=== PATIENT | male | born 1950 | race Caucasian/White ===

== ENCOUNTER 2016-06-25 11:19 | Emergency (ER) | payer MEDICARE, BC ==
[2016-06-25] MEDS ORDERED: LORazepam 2 MG/ML SYRINGE IVP STA (12:37)
[2016-06-25] MEDS ORDERED: LORazepam 2 MG/ML SYRINGE ONE (12:48)
== END 2016-06-25 14:13 | disposition home or self-care (01) ==
DX: R07.89 Other chest pain (principal); I10 Essential (primary) hypertension; F10.239 Alcohol dependence with withdrawal, unspecified; Z91.19 Patient's noncompliance with other medical treatment and regimen; R79.89 Other specified abnormal findings of blood chemistry; I45.2 Bifascicular block; R94.31 Abnormal electrocardiogram [ECG] [EKG]
CPT/HCPCS: 36415; 71020; 80053; 80320; 83690; 84484; 85025; 93005; 93010; 96374; 99283; 99284; J2060

== ENCOUNTER 2018-07-13 13:00 | Emergency (ER) | payer MEDICARE, BC ==
[2018-07-13 13:12] VITALS: BP 172/108
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
--- NOTE | 2018-07-13 13:44 | XRAY Report ---
Reason: fall onto left chest, midaxillary rib pain Procedure Date: 07/13/2018 Accession Number: [id number] / [id number] Procedure: XR - Ribs w/PA Chest LT CPT Code: FULL RESULT: EXAM: LEFT RIB RADIOGRAPHY EXAM DATE: 07/13/2018 01:26 PM. CLINICAL HISTORY: Fall onto left chest, midaxillary rib pain. COMPARISON: CHEST 2 VIEW PA/LAT 06/25/2016 12:39 PM. TECHNIQUE: 1 view of the chest and 2 views of the ribs. FINDINGS: Bones: No acute rib fracture is identified. Lungs: Lung volumes are low. No consolidation or pneumothorax. Mediastinum: Heart size is normal. Other: None. IMPRESSION: No acute fracture or pneumothorax. RADIA
== END 2018-07-13 14:15 | disposition home or self-care (01) ==
LOC: ED 13:00
DX: S20.212A Contusion of left front wall of thorax, initial encounter (principal); W18.39XA Other fall on same level, initial encounter; Y93.89 Activity, other specified; I10 Essential (primary) hypertension
CPT/HCPCS: 99283

== ENCOUNTER 2019-10-06 18:27 | Emergency (ER) | payer MEDICARE, BC ==
[2019-10-06] MEDS ORDERED: BACITRACIN ZINC OINT 1 PACKET TOP STA (19:00)
--- NOTE | 2019-10-06 19:02 | ED Physician Documentation ---
History of Present Illness - Stated complaint Stated Complaint: HEAD LAC - Chief complaint Chief Complaint: Wound - History obtained from History obtained from: Patient - History of Present Illness Timing: Today Pain level max: 0 Pain level now: 0 - Additonal information Additional information: 68-year-old male presents the emergency department for laceration to the top of the head. He was walking today, tripped over a milk crate and hit a door jam. No loss of consciousness. No neck or back pain. Tetanus is up-to-date. No vomiting. Not on blood thinners. Nothing makes it better or worse. Review of Systems Constitutional: denies: Fever, Chills GI: denies: Nausea, Vomiting, Diarrhea PD PAST MEDICAL HISTORY - Past Medical History Cardiovascular: Hypertension GI: GERD Psych: Anxiety - Past Surgical History Past Surgical History: No - Present Medications Home Medications: Ambulatory Orders Medication Instructions Recorded Confirmed Hydrocodone/Acetaminophen [[place] 1 each PO Q6HR #10 tablet 07/13/18 5-325 Tablet] Olmesartan Medoxomil [Benicar] 40 mg PO DAILY 07/13/18 07/13/18 Omeprazole 40 mg PO DAILY 07/13/18 07/13/18 - Allergies Allergies/Adverse Reactions: Allergies Allergy/AdvReac Type Severity Reaction Status Date / Time No Known Drug Allergies Allergy Verified 10/06/19 18:35 - Social History Does the pt smoke?: No Smoking Status: Never smoker Does the pt drink ETOH?: No Does the pt have substance abuse?: No - Immunizations Immunizations are current?: Yes PD ED PE NORMAL - Vitals Vital signs reviewed: Yes - General General: Alert and oriented X 3, No acute distress - HEENT HEENT: Moist mucous membranes, Other (posterior scalp laceration, no bleeding.) - Neck Neck: Supple, no meningeal sign, No bony TTP - Cardiac Cardiac: RRR - Respiratory Respiratory: No respiratory distress, Clear bilaterally - Derm Derm: Warm and dry - Neuro Neuro: Alert and oriented X 3 - Psych Psych: Normal mood, Normal affect Results - Vitals Vitals: Vital Signs - 24 hr 10/06/19 10/06/19 18:29 19:18 Temperature 36.9 C Heart Rate 94 88 Respiratory 18 16 Rate Blood Pressure 144/92 H 143/84 H O2 Saturation 93 98 Oxygen O2 Source Room air Procedures - Laceration (location) posterior Length in cm: 3 Wound type: Curved, Superficial, Clean Neurovascular status: Sensory intact Wound Preparation: Irrigated copiously NS Skin layer closure: [place] Other: Patient tolerated well, No complications, Neurovascular intact, Tetanus UTD Complexity: Simple PD MEDICAL DECISION MAKING - ED course Complexity details: considered differential, d/w patient ED course: laceration repaired with john. NVI. No ICH or skull fractures. Warnings of infection and instructions on wound care given at bedside. Also counseled on how to minimize scarring. Patient counseled regarding signs and symptoms for which I believe and urgent re-evaluation would be necessary. Patient with good understanding of and agreement to plan and is comfortable going home at this time This document was made in part using voice recognition software. While efforts are made to proofread this document, sound alike and grammatical errors may occur. Departure - Departure Disposition: 01 Home, Self Care Clinical Impression: Scalp laceration Qualifiers: Encounter type: initial encounter Qualified Code(s): S01.01XA - Laceration without foreign body of scalp, initial encounter Condition: Good Instructions: ED Laceration Scalp Stitch Or Stap Follow-Up: Vilma Childers MD [Primary Care Provider] - Comments: Follow-up with your doctor in 10 to 14 days for staple removal or you can return here. Return sooner if you notice redness, swelling or drainage from the wound. Keep the wound clean. Discharge Date/Time: 10/06/19 19:18
[2019-10-06 19:18] VITALS: BP 143/84
== END 2019-10-06 19:18 | disposition home or self-care (01) ==
LOC: ED 18:27
DX: S01.01XA Laceration without foreign body of scalp, initial encounter (principal); W01.198A Fall on same level from slipping, tripping and stumbling with subsequent striking against other object, initial encounter; Y93.01 Activity, walking, marching and hiking; I10 Essential (primary) hypertension
CPT/HCPCS: 12002; 99282; A9270

== ENCOUNTER 2019-10-15 13:22 | Emergency (ER) | payer MEDICARE, BC ==
[2019-10-15 13:33] VITALS: BP 132/87
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
== END 2019-10-15 14:01 | disposition home or self-care (01) ==
LOC: ED 13:22
DX: S01.01XD Laceration without foreign body of scalp, subsequent encounter (principal)

== ENCOUNTER 2020-01-28 16:36 | Outpatient (CLI) | payer MEDICARE, BC | END 2020-01-28 16:37 | disposition home or self-care (01) | LOC: COV 16:36 | PROVIDERS: ATTEND Surgery | DX: Z01.812 Encounter for preprocedural laboratory examination (principal); K42.9 Umbilical hernia without obstruction or gangrene; K40.90 Unilateral inguinal hernia, without obstruction or gangrene, not specified as recurrent; Z20.828 Contact with and (suspected) exposure to other viral communicable diseases ==

== ENCOUNTER 2020-02-02 06:39 | Day surgery (SDC) | payer MEDICARE, BC ==
[~2020-02-02 06:39] MED LIST: CEFAZOLIN SODIUM IN 0.9 % NACL 2 GM/100 ML BAG IV ONE
--- NOTE | 2020-02-02 07:25 | ANESTHESIA ---
Pre-Anesthesia VS, & Labs - Diagnosis LIH/Umbilical hernia - Procedure Repair of LIH/UMB Hernia Vital Signs: Temp Pulse Resp BP Pulse Ox 36.4 C L 71 16 137/83 H 95 02/02/20 06:30 02/02/20 06:30 02/02/20 06:30 02/02/20 06:30 02/02/20 06:30 Height: 5 ft 6.5 in Weight (kg): 106.6 kg Body Mass Index: 37.3 BMI Classification: Obese - NPO >8 hours - Lab Results Lab results reviewed: Yes Home Medications and Allergies Home Medications: Ambulatory Orders Semaglutide [Ozempic] 0.5 - 1 mg SQ DAILY 01/22/20 Active Medications Scopolamine HBr (Scopolamine Patch) 1 patch TOP ONCE RON Olmesartan Medoxomil [Benicar] 40 mg PO DAILY 07/13/18 Omeprazole 20 mg PO DAILY 07/13/18 Metformin HCl [Fortamet] 500 mg PO DAILY 01/02/20 Semaglutide [Ozempic] 0.5 - 1 mg SQ DAILY 01/22/20 Allergies/Adverse Reactions: Allergies Allergy/AdvReac Type Severity Reaction Status Date / Time No Known Drug Allergies Allergy Verified 10/15/19 13:33 Anes History & Medical History - Anesthetic History Anesthesia Complications: reports: Post-Operative Nausea/Vomiting Family history of Anesthesia Complications: Denies Family history of Malignant Hyperthermia: Denies - Medical History Cardiovascular: reports: Hypertension Pulmonary: reports: Sleep apnea Gastrointestinal: reports: GERD Urinary: reports: Kidney stones Neuro: reports: None Musculoskeletal: reports: None Endocrine/Autoimmune: reports: Type 2 diabetes Skin: reports: None Smoking Status: Never smoker History of Cancer?: No - Surgical History General: Cholecystectomy, Colonoscopy Exam General: Alert, Oriented x3, Cooperative Dental: WNL Mouth Openin Fingerbreadth Neck Mobility: Reduced Mallampati classification: II Thyromental Distance: 4-6 cm Respiratory: Lungs clear Cardiovascular: Regular rate, Normal S1, Normal S2, No murmurs Plan Anesthesia Type: General Consent for Procedure(s) Verified and Reviewed: Yes Code Status: Attempt Resuscitation ASA classification: 3-Severe systemic disease Is this case an emergency?: No (Discussed Anesthesia, consent signed.)
[2020-02-02] MEDS ORDERED: fentaNYL 100 MCG/2 ML VIAL IVP PRN (07:28)
[2020-02-02] MEDS ORDERED: HYDROmorphone 0.5 MG/0.5 ML SYRINGE IVP PRN (07:28)
[2020-02-02] MEDS ORDERED: ATROPINE ABBOJECT 1 MG/10 ML SYRINGE IVP PRN (07:28)
[2020-02-02] MEDS ORDERED: NALOXONE 0.4 MG/ML VIAL IVP PRN (07:28)
[2020-02-02] MEDS ORDERED: METOCLOPRAMIDE 10 MG/2 ML VIAL IVP PRN (07:28)
[2020-02-02] MEDS ORDERED: ePHEDrine 50 MG/ML VIAL IVP PRN (07:28)
[2020-02-02] MEDS ORDERED: ONDANSETRON 4 MG/2 ML VIAL IVP PRN ×2 (07:28→09:42)
[2020-02-02] MEDS ORDERED: MORPHINE 2 MG/ML CARPUJECT IVP PRN (07:28)
[2020-02-02] MEDS ORDERED: LACTATED RINGERS 1,000 ML IV ONE ×2 (07:30→09:53)
[2020-02-02] MEDS ORDERED: ceFAZolin 1 GM VIAL ONE (07:36)
[2020-02-02] MEDS ORDERED: LIDOCAINE 1%-EPI 1:100000 20 ML MDV ONE (07:36)
[2020-02-02] MEDS ORDERED: BUPIVACAINE 0.5%-EPI 1:200000 PF 30 ML VIAL ONE (07:36)
[2020-02-02] MEDS ORDERED: SCOPOLAMINE PATCH TOP ONE ×2 (07:37→08:00)
[2020-02-02] MEDS ORDERED: BUPIVACAINE 0.5% PF 30 ML VIAL ONE (07:58)
[2020-02-02] MEDS ORDERED: LACTATED RINGERS 1,000 ML IV SCH (08:00)
[2020-02-02] MEDS ORDERED: BUPIVACAINE 0.5% PF 30 ML VIAL INFIL ONE (08:33)
[2020-02-02] MEDS ORDERED: LIDOCAINE 1%-EPI 1:100000 30 ML MDV SUBQ ONE (08:33)
[2020-02-02] MEDS ORDERED: ceFAZolin 1 GM VIAL IR ONE (08:56)
--- NOTE | 2020-02-02 09:39 | OPERATIVE REPORT ---
Operative Report - General Procedure Date: 02/02/20 Planned Procedure: Umbilical hernia repair and left inguinal hernia repair Pre-Op Diagnosis: Umbilical incisional hernia and left inguinal hernia Procedure Performed: Umbilical hernia repair and left inguinal hernia repair Post Op Diagnosis: Umbilical incisional hernia and left inguinal hernia - Procedure Note Primary Surgeon: Dane Anesthesia Provider: KESHA Sánchez Anesthesia Technique: General LMA, Local Pathology: None IV Fluids (mL): 600 Estimated Blood Loss (mL): 10 Findings: 1. Large direct left inguinal hernia 2. Small incisional hernia at the umbilicus Complications: None apparent - Other Other Information/Narrative: After obtaining informed consent, the patient is brought to the operating room and placed in the supine position on the operating table. Following successful induction of general endotracheal anesthesia, appropriate padding of all bony prominences, and placement of appropriate monitors, the abdomen was prepped and draped in the standard surgical fashion. A timeout was held per scope protocol. All elements of the surgical safety checklist were followed before, during, and after the procedure. We began the procedure by infiltrating a mixture of local anesthetics medial to the anterior superior iliac spine on the left. This was done to create an ileal inguinal nerve block. We then selected a site for an incision in the right lower quadrant just superior and lateral to the left pubic tubercle. This area was anesthetized with additional local anesthetic and an incision was created here.The incision was carried down through the skin and subcutaneous tissue to reveal the fascia of the external oblique aponeurosis. Retractor was placed and the aponeurosis was opened in direction of its fibers. The ilioinguinal nerve was immediately identified. We continued by identifying the spermatic cord and gently encircling it with a Alexa drain. The hernia sac was carefully dissected free from the cord structures and was noted to be in the inferior lateral position. It consisted primarily of a large lipoma and a direct inguinal hernia. The hernia contents were placed back into the abdominal cavity. We elected to repair the hernia with a large Prolene hernia system mesh implant. This was dipped in Ancef containing solution and then deployed into the defect. The posterior leaflet was straightened and flattened in the preperitoneal space. The anterior leaflet was then nicked medially to provide a place for the spermatic cord and then closed with a Vicryl suture. The more inferior aspect was then sewn to Dakotah's ligament medially. Laterally it was tucked under the external beak aponeurosis. The wound was checked for hemostasis and irrigated with warm saline solution. It was aspirated free of all fluid and particulate matter. The extra oblique aponeurosis was then closed with a running locking Vicryl suture Lissy's fascia was closed with Vicryl suture and Monocryl stitches were placed in the skin. We turned our attention to the ventral hernia. Following infiltration with local anesthetic to create a field block, an incision was created directly through the umbilicus and over the palpable and visible defect. This was carried through the skin and subcutaneous tissue. The umbilical tissue was then freed from the umbilical remnant for complete exposure to the hernia sack. The defect was noted to be approximately 1.5 cm in greatest dimension. The hernia sac itself was approximately 4 cm. The hernia sac was carefully dissected free from the overlying skin and underlying fascial tissue as well as the surrounding areolar tissue. The contents of the sac were eased back into the abdominal cavity without opening the peritoneum. The surgically was then inserted into the defect and the anterior abdominal wall palpated internally to be sure there was enough space for mesh placement. We elected to repair the defect with a 6 cm a portion of secure mesh. The mesh was dipped in Ancef solution and into the defect. It was straightened and flattened in the preperitoneal space. Placement was checked and adjusted. Once we were satisfied it was ideal, the tails were trimmed and sewn to the fascia anteriorly. The wound was checked for hemostasis and irrigated with Ancef containing solution The umbilicus was reconstructed with interrupted Vicryl suture. The incision was closed in layers with Vicryl and Monocryl suture and Dermabond was applied to the skin. All sponge, needle, and instrument counts were correct at the conclusion of the case. The patient was allowed awaken from anesthesia without difficulty and taken to the postanesthesia care unit in good condition.
[2020-02-02] MEDS ORDERED: ACETAMINOPHEN 325 MG TABLET PO PRN (09:42)
[2020-02-02] MEDS ORDERED: IBUPROFEN 600 MG TABLET PO PRN (09:42)
[2020-02-02] MEDS ORDERED: oxyCODONE 5 MG TABLET PO PRN (09:42)
--- NOTE | 2020-02-02 10:23 | ANESTHESIA POST OP EVALUATION ---
Anesthesia Post Eval - Post Anesthesia Eval Vitals: Last Vital Signs Temp 36.5 C 02/02/20 10:20 Pulse 77 02/02/20 10:20 Resp 16 02/02/20 10:20 BP 134/70 H 02/02/20 10:20 Pulse Ox 94 02/02/20 10:20 CV Function Including HR & BP: positive: Stable Pain Control: positive: Satisfactory Nausea & Vomiting: positive: Negative Mental Status: positive: Baseline Respiratory Status: Airway Patent Hydration Status: Satisfactory Anesthesia Complications: positive: None (Awake, alert, taking PO, no c omplaints)
[2020-02-02 10:48] VITALS: BP 132/69
[2020-02-02] MEDS ORDERED: IBUPROFEN 600 MG TABLET PO ONE (10:50)
== END 2020-02-02 06:40 | disposition home or self-care (01) ==
LOC: SDS 06:39
PROVIDERS: ATTEND Surgery
DX: K40.90 Unilateral inguinal hernia, without obstruction or gangrene, not specified as recurrent (principal); K43.2 Incisional hernia without obstruction or gangrene; I10 Essential (primary) hypertension; G47.33 Obstructive sleep apnea (adult) (pediatric); N40.0 Benign prostatic hyperplasia without lower urinary tract symptoms; E66.9 Obesity, unspecified; Z68.37 Body mass index [BMI] 37.0-37.9, adult; E11.9 Type 2 diabetes mellitus without complications; Z79.84 Long term (current) use of oral hypoglycemic drugs
CPT/HCPCS: 49505; 49560; 49568; A9270; C1781; J0690; J3490; J7120

== ENCOUNTER 2020-02-05 22:07 | Emergency (ER) | payer MEDICARE, BC ==
--- NOTE | 2020-02-05 22:14 | ED Physician Documentation ---
History of Present Illness - Stated complaint Stated Complaint: CHILLS - History obtained from History obtained from: Patient - History of Present Illness Timing: Enter time (16:00), Today Pain level now: 2 - Additonal information Additional information: c/o chills 4 PM today, measured his temperature and had Tmax 101.7. he is 3 days post-operative herniorrhaphy (umbilical and left inguinal). he has no other new c/o except fever, chills. he says his post-operative pain is steadily improving Review of Systems Constitutional: reports: Fever, Chills. denies: Sweats Throat: denies: Sore throat Cardiac: reports: Reviewed and negative Respiratory: reports: Reviewed and negative GI: reports: Abdominal Pain (post-operative pain which has been steadily improving). denies: Nausea, Vomiting : denies: Dysuria, Frequency Skin: denies: Rash PD PAST MEDICAL HISTORY - Past Medical History Cardiovascular: Hypertension Neuro: None Endocrine/Autoimmune: Type 2 diabetes GI: GERD Psych: Anxiety - Past Surgical History Past Surgical History: No - Present Medications Home Medications: Ambulatory Orders Medication Instructions Recorded Confirmed Olmesartan Medoxomil [Benicar] 40 mg PO DAILY 07/13/18 02/05/20 Omeprazole 20 mg PO DAILY 07/13/18 02/05/20 Metformin HCl [Fortamet] 500 mg PO DAILY 01/02/20 02/05/20 Semaglutide [Ozempic] 0.5 - 1 mg SQ DAILY 01/22/20 02/05/20 Docusate Sodium [Dulcolax Stool 100 mg PO BID #30 capsule 02/02/20 02/05/20 Softener] Ondansetron Odt [Zofran Odt] 4 mg TL Q6H PRN #20 tablet 02/02/20 02/05/20 oxyCODONE [Roxicodone] 5 mg PO Q4-6H PRN #30 tablet 02/02/20 02/05/20 - Allergies Allergies/Adverse Reactions: Allergies Allergy/AdvReac Type Severity Reaction Status Date / Time No Known Drug Allergies Allergy Verified 10/15/19 13:33 - Social History Does the pt smoke?: No Smoking Status: Never smoker Does the pt drink ETOH?: No Does the pt have substance abuse?: No - Immunizations Immunizations are current?: Yes - POLST Patient has POLST: No PD ED PE NORMAL - Vitals Vital signs reviewed: Yes - General General: Alert and oriented X 3, No acute distress, Well developed/nourished - Cardiac Cardiac: RRR, No murmur - Respiratory Respiratory: No respiratory distress, Clear bilaterally - Abdomen Abdomen: Normal bowel sounds, Soft, Non distended, Other (Surgical sites (umbilical and left inguinal) are c/d/I with mild surrounding echymosis but no erythema nor discharge. Mild TTP as expected considering recent procedure) Results - Vitals Vitals: Oxygen O2 Source Room air - Labs Labs: Microbiology 02/05/20 23:05 Blood Culture - Preliminary Blood - Right Arm NO GROWTH AFTER 1 DAY 02/05/20 22:45 Blood Culture - Preliminary Blood NO GROWTH AFTER 1 DAY Laboratory Tests 02/05/20 02/05/20 02/05/20 22:45 22:45 22:45 WBC 9.6 RBC 5.00 Hgb 16.3 Hct 46.0 MCV 92.0 MCH 32.6 H MCHC 35.4 RDW 12.2 Plt Count 164 MPV 9.3 Neut # (Auto) 6.9 H Lymph # (Auto) 1.7 [place] # (Auto) 0.7 Eos # (Auto) 0.3 Baso # (Auto) 0.0 Absolute Nucleated RBC 0.00 Nucleated RBC % 0.0 Sodium 140 Potassium 3.6 Chloride 99 L Carbon Dioxide 26 Anion Gap 15.0 H BUN 17 Creatinine 0.9 Estimated GFR (MDRD) 84 L Glucose 150 H Lactic Acid 1.0 Calcium 9.3 Total Bilirubin 1.6 H AST 19 ALT 29 Alkaline Phosphatase 53 Total Protein 7.0 Albumin 4.2 Globulin 2.8 Albumin/Globulin Ratio 1.5 Lipase 56 H Urine Color Urine Clarity Urine pH Ur Specific [place] Urine Protein Urine Glucose (UA) Urine Ketones Urine Occult Blood Urine Nitrite Urine Bilirubin Urine Urobilinogen Ur Leukocyte Esterase Ur Microscopic Review Urine Culture Comments Nasal Adenovirus (PCR) Nasal B. parapertussis DNA (PCR) Nasal Coronavir 229E PCR Nasal Coronavir HKU1 PCR Nasal Coronavir NL63 PCR Nasal Coronavir OC43 PCR Nasal Enterovir/Rhinovir PCR Nasal Influenza B PCR Nasal Influenza A PCR Nasal Parainfluen 1 PCR Nasal Parainfluen 2 PCR Nasal Parainfluen 3 PCR Nasal Parainfluen 4 PCR Nasal RSV (PCR) Nasal B.pertussis DNA PCR Nasal C.pneumoniae (PCR) Cj Human Metapneumo PCR Nasal M.pneumoniae (PCR) Nasal SARS-CoV-2 (PCR) 02/05/20 02/05/20 22:55 23:50 WBC RBC Hgb Hct MCV MCH MCHC RDW Plt Count MPV Neut # (Auto) Lymph # (Auto) [place] # (Auto) Eos # (Auto) Baso # (Auto) Absolute Nucleated RBC Nucleated RBC % Sodium Potassium Chloride Carbon Dioxide Anion Gap BUN Creatinine Estimated GFR (MDRD) Glucose Lactic Acid Calcium Total Bilirubin AST ALT Alkaline Phosphatase Total Protein Albumin Globulin Albumin/Globulin Ratio Lipase Urine Color YELLOW Urine Clarity CLEAR Urine pH 6.0 Ur Specific [place] 1.025 Urine Protein NEGATIVE Urine Glucose (UA) NEGATIVE Urine Ketones NEGATIVE Urine Occult Blood NEGATIVE Urine Nitrite NEGATIVE Urine Bilirubin NEGATIVE Urine Urobilinogen 0.2 (NORMAL) Ur Leukocyte Esterase NEGATIVE Ur Microscopic Review NOT INDICATED Urine Culture Comments NOT INDICATED Nasal Adenovirus (PCR) NOT DETECTED Nasal B. parapertussis DNA (PCR) NOT DETECTED Nasal Coronavir 229E PCR NOT DETECTED Nasal Coronavir HKU1 PCR NOT DETECTED Nasal Coronavir NL63 PCR NOT DETECTED Nasal Coronavir OC43 PCR NOT DETECTED Nasal Enterovir/Rhinovir PCR NOT DETECTED Nasal Influenza B PCR NOT DETECTED Nasal Influenza A PCR NOT DETECTED Nasal Parainfluen 1 PCR NOT DETECTED Nasal Parainfluen 2 PCR NOT DETECTED Nasal Parainfluen 3 PCR NOT DETECTED Nasal Parainfluen 4 PCR NOT DETECTED Nasal RSV (PCR) NOT DETECTED Nasal B.pertussis DNA PCR NOT DETECTED Nasal C.pneumoniae (PCR) NOT DETECTED Cj Human Metapneumo PCR NOT DETECTED Nasal M.pneumoniae (PCR) NOT DETECTED Nasal SARS-CoV-2 (PCR) NOT DETECTED - Rads (name of study) Chest xray Radiology: Prelim report reviewed, See rad report PD MEDICAL DECISION MAKING - ED course Complexity details: reviewed results, re-evaluated patient, considered differential, d/w patient ED course: reassuring test results including blood tests, UA, and cxr. patient given tylenol although he only took half of the ordered dose; his temperature improved to 99.4. On reevaluation he remains in no apparent distress and says he feels well, is comfortable with d/c home. I discussed the case with Dr. Vela who agrees patient is safe and appropriate for d/c home Departure - Departure Disposition: 01 Home, Self Care Clinical Impression: Postoperative fever Condition: Good Instructions: ED Fever Unconf Cause Follow-Up: Vilma Childers MD [Primary Care Provider] - Discharge Date/Time: 02/06/20 03:15
[2020-02-05] MEDS ORDERED: ACETAMINOPHEN 325 MG TABLET PO STA (22:57)
[2020-02-05 23:01] LABS: BASOPHILS % (AUTO) 0.4 %; EOSINOPHILS # (AUTO) 0.3 10^3/uL (0.0-0.7); EOSINOPHILS % (AUTO) 3.1 %; HGB - HEMOGLOBIN 16.3 g/dL (14.0-18.0); LYMPHOCYTES # (AUTO) 1.7 10^3/uL (1.5-3.5); LYMPHOCYTES % (AUTO) 17.4 %; MEAN CORPUSCULAR HEMOGLOBIN 32.6 pg (27.0-31.0); MEAN CORPUSCULAR HGB CONC 35.4 g/dL (32.0-36.0); MEAN PLATELET VOLUME 9.3 fL (7.4-11.4); MONOCYTES # (AUTO) 0.7 10^3/uL (0.0-1.0); MONOCYTES % (AUTO) 7.2 %; NEUTROPHILS # (AUTO) 6.9 10^3/uL (1.5-6.6); NEUTROPHILS % (AUTO) 71.6 %; PLT - PLATELET COUNT 164 10^3/uL (130-450); RED CELL DISTRIBUTION WIDTH 12.2 % (12.0-15.0); WHITE BLOOD COUNT 9.6 x10^3/uL (4.8-10.8)
[2020-02-05 23:11] LABS: ALBUMIN 4.2 g/dL (3.2-5.5); ALBUMIN/GLOBULIN RATIO 1.5 (1.0-2.2); BILIRUBIN,TOTAL 1.6 mg/dL (0.2-1.0); CALCIUM 9.3 mg/dL (8.5-10.3); CREATININE 0.9 mg/dL (0.6-1.2)
[2020-02-06] LABS: C. PNEUMONIAE- RESP PCR PANEL NOT DETECTED
[2020-02-06 00:15] LABS: BILIRUBIN,URINE NEGATIVE (NEGATIVE); GLUCOSE, URINE (UA) NEGATIVE (NEGATIVE); KETONES,URINE (UA) NEGATIVE (NEGATIVE); LEUKOCYTE ESTERASE, URINE NEGATIVE (NEGATIVE); NITRITE,URINE NEGATIVE (NEGATIVE); OCCULT BLOOD,URINE NEGATIVE (NEGATIVE); PROTEIN,URINE NEGATIVE (NEGATIVE); UROBILINOGEN,URINE 0.2 (NORMAL) E.U./dL (NORMAL)
[2020-02-06 00:39] LABS: CLARITY,URINE CLEAR (CLEAR)
[2020-02-06 03:10] VITALS: BP 131/84
--- NOTE | 2020-02-06 07:45 | XRAY Report ---
PROCEDURE: Chest 1 View X-Ray INDICATIONS: chest pain TECHNIQUE: One view of the chest was acquired. COMPARISON: 07/05/2016 FINDINGS: Surgical changes and devices: None. Lungs and pleura: No pleural effusions or pneumothorax. Lungs are clear. Mediastinum: Mediastinal contours appear normal. Heart size is normal. Bones and chest wall: No suspicious bony lesions. Overlying soft tissues appear unremarkable. IMPRESSION: No acute cardiopulmonary disease process. Reviewed by: Leta Velazquez MD, PhD on 02/06/2020 7:43 AM [facility] Approved by: Leta Velazquez MD, PhD on 02/06/2020 7:43 AM [facility] Station ID: [id number]
== END 2020-02-06 03:15 | disposition home or self-care (01) ==
LOC: ED 22:07
DX: R50.82 Postprocedural fever (principal); Z20.828 Contact with and (suspected) exposure to other viral communicable diseases; I10 Essential (primary) hypertension; E11.9 Type 2 diabetes mellitus without complications
CPT/HCPCS: 36415; 71045; 80053; 81003; 83605; 83690; 85025; 87040; 87631; 99282; 99284; A9270; 0202U; 81001; 87086